=== PATIENT | male | born 1950 ===

== ENCOUNTER 2016-09-03 14:11 | Emergency (ER) | payer MEDICARE, OTHER ==
[2016-09-03 15:23] LABS: CH 29.9; CHCM 32.1; HCT 25.1 % (39.0-53.0); HDW 2.69; HGB 8.2 gm/dL (13.0-17.5); MCH 30.6 pg (25.0-35.0); MCHC 32.7 g/dL (31.0-37.0); MCV 93.6 fL (80.0-100.0); Mean Platelet Volume 7.3; RBC 2.68 m/uL (4.30-5.90); RDW 15.1 % (11.5-15.5); WBC 8.5 k/uL (3.8-10.6)
[2016-09-03 15:30] LABS: INR 1.1 (<1.1); Prothrombin Time 11.2 sec (9.0-12.0)
[2016-09-03 15:39] LABS: Calcium 9.4 mg/dL (8.4-10.2); Potassium 4.4 mmol/L (3.5-5.1); Total Bilirubin 0.3 mg/dL (0.2-1.3); Total Protein 7.1 g/dL (6.3-8.2)
[2016-09-03 15:58] LABS: Troponin I 0.016 ng/mL (0.000-0.034)
[2016-09-03 16:00] LABS: Creatine Kinase MB 4.4 ng/mL (0.0-2.4)
--- NOTE | 2016-09-03 16:14 | XR ---
EXAMINATION TYPE: XR chest 2V DATE OF EXAM: 09/03/2016 COMPARISON: NONE HISTORY: Shortness of breath and abnormal labs TECHNIQUE: Frontal and lateral views of the chest are obtained. FINDINGS: Osseous structures are intact. Cardiac silhouette size is upper limits of normal. Small walter ateral pleural effusions are seen. There is associated bibasilar atelectasis and/or infiltrate. There is moderate central vascular congestion. IMPRESSION: Suspect CHF exacerbation or fluid overload state, clinical correlation advised.
[2016-09-03 16:39] VITALS: RESP 22
[2016-09-03 17:45] LABS: VBG PH 7.4 (7.31-7.41)
--- NOTE | 2016-09-03 18:42 | ED ---
General Adult HPI - General Chief complaint: Shortness of Breath Stated complaint: Abnormal Labs Time Seen by Provider: 09/03/16 15:13 Source: patient, EMS, RN notes reviewed, old records reviewed Mode of arrival: EMS Limitations: physical limitation - History of Present Illness Initial comments: 65-year-old male presenting with 3 week history of worsening shortness of breath. Patient had a prolonged course at [facility] and was in rehab for the past one month. Patient had no medical problems prior to his initial hospitalization approximately 2 months ago. According to the limited review of medical record patient had some acute kidney injury requiring hemodialysis. Patient states he just had 1 episode. He has been wearing oxygen at 3 L since discharge. He denies chest pain denies fever denies rectal bleeding. Denies nausea vomiting or diarrhea. - Related Data Home Medications Medication Instructions Recorded Confirmed Acetaminophen Tab [Tylenol Tab] 650 mg PO Q6H PRN 09/03/16 09/03/16 Ammonium Lactate Lotion 1 applic TOPICAL BID 09/03/16 09/03/16 [Lac-Hydrin 12% Lotion] Budesonide [Pulmicort] 1 mg INHALATION RT-BID 09/03/16 09/03/16 Calcium Acetate [Phoslo] 1,334 mg PO TID-W/MEALS 09/03/16 09/03/16 Cholecalciferol [Vitamin D3] 1,000 unit PO DAILY 09/03/16 09/03/16 Escitalopram [Lexapro] 5 mg PO DAILY 09/03/16 09/03/16 Esomeprazole Magnesium [NexIUM] 40 mg PO DAILY 09/03/16 09/03/16 Ferrous Sulfate [Feosol] 325 mg PO DAILY 09/03/16 09/03/16 Furosemide [Lasix] 40 mg PO MOWEFR 09/03/16 09/03/16 Furosemide [Lasix] 80 mg PO SUTUTHSA 09/03/16 09/03/16 HYDROcodone/APAP 5-325MG [Dickinson 1 tab PO Q4HR PRN 09/03/16 09/03/16 5-325] Ipratropium-Albuterol Nebulize 3 ml INHALATION RT-TID 09/03/16 09/03/16 [Duoneb 0.5 mg-3 mg/3 ml Soln] Mag Hydrox/Al Hydrox/Simeth 15 ml PO Q6H PRN 09/03/16 09/03/16 [Maalox] Melatonin 5 mg PO HS 09/03/16 09/03/16 Metoprolol Tartrate [Lopressor] 50 mg PO BID 09/03/16 09/03/16 Vitamin B Complex 1 cap PO HS 09/03/16 09/03/16 amLODIPine [Norvasc] 5 mg PO BID 09/03/16 09/03/16 Allergies Allergy/AdvReac Type Severity Reaction Status Date / Time No Known Allergies Allergy Verified 09/03/16 15:13 Review of Systems ROS Statement: Those systems with pertinent positive or pertinent negative responses have been documented in the HPI. ROS Other: All systems not noted in ROS Statement are negative. Past Medical History Past Medical History: Dialysis, Hypertension, Renal Disease, Respiratory Disorder Additional Past Medical History / Comment(s): Dialysis temporary 07/11 to 08/11 , Anemia History of Any Multi-Drug Resistant Organisms: None Reported Past Surgical History: No Surgical Hx Reported Past Psychological History: No Psychological Hx Reported Smoking Status: Former smoker Past Alcohol Use History: Heavy Past Drug Use History: None Reported General Exam Limitations: physical limitation General appearance: alert, in no apparent distress Head exam: Present: atraumatic, normocephalic Eye exam: Present: normal appearance, PERRL, EOMI ENT exam: Present: normal exam, mucous membranes moist Neck exam: Present: normal inspection. Absent: meningismus Respiratory exam: Present: respiratory distress, rales Cardiovascular Exam: Present: regular rate, normal rhythm GI/Abdominal exam: Present: soft. Absent: distended, tenderness Extremities exam: Present: normal inspection, pedal edema Neurological exam: Present: alert, oriented X3 Psychiatric exam: Present: normal affect, normal mood Skin exam: Present: warm, dry Course Vital Signs 09/03/16 09/03/16 09/03/16 14:51 15:12 16:38 Temperature 97.1 F L Pulse Rate 70 70 Respiratory 23 23 22 Rate Blood Pressure 140/91 142/70 O2 Sat by Pulse 88 L 97 Oximetry 09/03/16 17:40 Temperature Pulse Rate 76 Respiratory 22 Rate Blood Pressure 151/104 O2 Sat by Pulse 97 Oximetry EKG Findings - EKG Comments: EKG Findings:: EKG shows normal sinus rhythm with ventricular 70, DE interval 148, QS duration 84, QTC 455 Medical Decision Making - Medical Decision Making 65-year-old male presenting with a 3 week history of worsening dyspnea. Patient was discharged from [facility] approximately one month ago with a serum creatinine of 2.69. Creatinine today is 6.12. Hemoglobin 8.2 no baseline known. Patient does have pulmonary edema on chest x-ray. This is likely due to reduced kidney function. Patient has only 150 mL of urine output while in the emergency department. Patient will be transferred back to [facility] for further evaluation treatment. He was on a short course of hemodialysis during his recent admission and may be progressing towards hemodialysis again. Patient's potassium is 4.4 which is normal. Diagnosis: Fluid overload, anemia, acute renal failure. - Lab Data Result diagrams: 09/03/16 15:00 09/03/16 15:00 Lab Results 09/03/16 09/03/16 09/03/16 Range/Units 15:00 15:00 15:00 WBC 8.5 (3.8-10.6) k/uL RBC 2.68 L (4.30-5.90) m/uL Hgb 8.2 L (13.0-17.5) gm/dL Hct 25.1 L (39.0-53.0) % MCV 93.6 (80.0-100.0) fL MCH 30.6 (25.0-35.0) pg MCHC 32.7 (31.0-37.0) g/dL RDW 15.1 (11.5-15.5) % Plt Count 410 (150-450) k/uL PT (9.0-12.0) sec INR (<1.1) APTT (22.0-30.0) sec VBG pH (7.31-7.41) VBG pCO2 (37-51) mmHg VBG HCO3 (24-28) mmol/L Sodium 135 L (137-145) mmol/L Potassium 4.4 (3.5-5.1) mmol/L Chloride 100 (98-107) mmol/L Carbon Dioxide 19 L (22-30) mmol/L Anion Gap 16 mmol/L BUN 93 H* (9-20) mg/dL Creatinine 6.80 H* (0.66-1.25) mg/dL Est GFR (MDRD) Af Amer 10 (>60 ml/min/1.73 sqM) Est GFR (MDRD) Non-Af 8 (>60 ml/min/1.73 sqM) Glucose 149 H (74-99) mg/dL Plasma Lactic Acid Alberto (0.7-2.0) mmol/L Calcium 9.4 (8.4-10.2) mg/dL Total Bilirubin 0.3 (0.2-1.3) mg/dL AST 13 L (17-59) U/L ALT 20 L (21-72) U/L Alkaline Phosphatase 150 H (38-126) U/L Total Creatine Kinase 29 L (55-170) U/L CK-MB (CK-2) 4.4 H* (0.0-2.4) ng/mL CK-MB (CK-2) Rel Index 15.2 Troponin I 0.016 (0.000-0.034) ng/mL NT-Pro-B Natriuret Pep pg/mL Total Protein 7.1 (6.3-8.2) g/dL Albumin 3.0 L (3.5-5.0) g/dL 09/03/16 09/03/16 09/03/16 Range/Units 15:00 15:00 15:25 WBC (3.8-10.6) k/uL RBC (4.30-5.90) m/uL Hgb (13.0-17.5) gm/dL Hct (39.0-53.0) % MCV (80.0-100.0) fL MCH (25.0-35.0) pg MCHC (31.0-37.0) g/dL RDW (11.5-15.5) % Plt Count (150-450) k/uL PT 11.2 (9.0-12.0) sec INR 1.1 (<1.1) APTT 26.0 (22.0-30.0) sec VBG pH (7.31-7.41) VBG pCO2 (37-51) mmHg VBG HCO3 (24-28) mmol/L Sodium (137-145) mmol/L Potassium (3.5-5.1) mmol/L Chloride (98-107) mmol/L Carbon Dioxide (22-30) mmol/L Anion Gap mmol/L BUN (9-20) mg/dL Creatinine (0.66-1.25) mg/dL Est GFR (MDRD) Af Amer (>60 ml/min/1.73 sqM) Est GFR (MDRD) Non-Af (>60 ml/min/1.73 sqM) Glucose (74-99) mg/dL Plasma Lactic Acid Alberto 1.6 (0.7-2.0) mmol/L Calcium (8.4-10.2) mg/dL Total Bilirubin (0.2-1.3) mg/dL AST (17-59) U/L ALT (21-72) U/L Alkaline Phosphatase (38-126) U/L Total Creatine Kinase (55-170) U/L CK-MB (CK-2) (0.0-2.4) ng/mL CK-MB (CK-2) Rel Index Troponin I (0.000-0.034) ng/mL NT-Pro-B Natriuret Pep 25860 pg/mL Total Protein (6.3-8.2) g/dL Albumin (3.5-5.0) g/dL 09/03/16 Range/Units 17:35 WBC (3.8-10.6) k/uL RBC (4.30-5.90) m/uL Hgb (13.0-17.5) gm/dL Hct (39.0-53.0) % MCV (80.0-100.0) fL MCH (25.0-35.0) pg MCHC (31.0-37.0) g/dL RDW (11.5-15.5) % Plt Count (150-450) k/uL PT (9.0-12.0) sec INR (<1.1) APTT (22.0-30.0) sec VBG pH 7.40 (7.31-7.41) VBG pCO2 36 L (37-51) mmHg VBG HCO3 22 L (24-28) mmol/L Sodium (137-145) mmol/L Potassium (3.5-5.1) mmol/L Chloride (98-107) mmol/L Carbon Dioxide (22-30) mmol/L Anion Gap mmol/L BUN (9-20) mg/dL Creatinine (0.66-1.25) mg/dL Est GFR (MDRD) Af Amer (>60 ml/min/1.73 sqM) Est GFR (MDRD) Non-Af (>60 ml/min/1.73 sqM) Glucose (74-99) mg/dL Plasma Lactic Acid Alberto (0.7-2.0) mmol/L Calcium (8.4-10.2) mg/dL Total Bilirubin (0.2-1.3) mg/dL AST (17-59) U/L ALT (21-72) U/L Alkaline Phosphatase (38-126) U/L Total Creatine Kinase (55-170) U/L CK-MB (CK-2) (0.0-2.4) ng/mL CK-MB (CK-2) Rel Index Troponin I (0.000-0.034) ng/mL NT-Pro-B Natriuret Pep pg/mL Total Protein (6.3-8.2) g/dL Albumin (3.5-5.0) g/dL Disposition Clinical Impression: Congestive heart failure Disposition: OTHER INSTITUTION NOT DEFINED Referrals: Bethany Day MD [Primary Care Provider] - 1-2 days Time of Disposition: 18:41 - Out of Hospital Transfer - Req. Specs Out of Hospital Transfer - Requested Specifics: Telemetry Unit (Patient's transfer to [facility] excepting physician: Dr. Workman)
[2016-09-03 19:15] VITALS: BP 156/92
[2016-09-03 19:28] VITALS: PULSE 75; TEMP 98.2
== END 2016-09-03 19:33 | disposition short-term general hospital (02) ==
LOC: EC 14:11
DX: I50.9 Heart failure, unspecified (principal); N17.9 Acute kidney failure, unspecified; D64.9 Anemia, unspecified; E87.70 Fluid overload, unspecified; I10 Essential (primary) hypertension; Z87.891 Personal history of nicotine dependence; Z79.51 Long term (current) use of inhaled steroids; Z79.899 Other long term (current) drug therapy; Z87.09 Personal history of other diseases of the respiratory system; Z99.2 Dependence on renal dialysis
CPT/HCPCS: 36415; 71020; 80053; 82550; 82553; 82803; 83605; 83880; 84484; 85027; 85610; 85730; 93005; 99285